=== PATIENT | female | born 1960 | race Caucasian/White ===

== ENCOUNTER 2018-12-23 07:51 | Outpatient (CLI) | payer BC ==
--- NOTE | 2018-12-23 09:32 | MRI ---
MR the lumbar spine without contrast INDICATION: Bilateral lumbar radiculopathy with bilateral leg weakness and pain COMPARISON: None. TECHNIQUE: Multiplanar multisequence MR images were obtained of lumbar spine without IV contrast. FINDINGS: Bone marrow: Bone marrow signal intensity appears within normal limits. Distal spinal cord and conus: Normal. The conus seen to terminate at L2. Visualized retroperitoneum and paraspinal soft tissues: Normal. Vertebral levels: L5-S1: There is a broad-based disc bulge with a superimposed central annular fissure. The loss of dis c space height in addition to the disc bulge and facet hypertrophy at L5-S1 induces moderate bilateral neural foraminal narrowing.. L4-5: There is a broad-based disc bulge with a superimposed central protrusion causing mild ventral e ffacement of the subarachnoid space. The disc bulge does encroach upon the inferior aspect of the neural foramina without definite impingement of the exiting nerve roots. L3-4: There is a mild broad-based bulge causing mild inferior neural foraminal encroachment but no ap preciable impingement of the exiting nerve roots. L2-3: There is a mild broad-based disc bulge but no appreciable central canal or neural foraminal charlie rowing L1-L2: There is a mild broad-based bulge but no appreciable central canal or neural foraminal narrowi ng T12-L1: No appreciable central canal or neuroforaminal narrowing. IMPRESSION: 1. Mild spondylosis of the lumbar spine most pronounced at L3-4 through L5-S1
== END 2018-12-23 07:52 | disposition home or self-care (01) ==
LOC: BICMRI 07:51
PROVIDERS: ATTEND Family Medicine
DX: M47.26 Other spondylosis with radiculopathy, lumbar region (principal); M47.817 Spondylosis without myelopathy or radiculopathy, lumbosacral region
CPT/HCPCS: 72148

== ENCOUNTER 2018-12-24 21:02 | Emergency (ER) | payer BC ==
[2018-12-24] MEDS ORDERED: Acetaminophen 500 MG TAB ONE (22:29)
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
== END 2018-12-25 00:43 | disposition home or self-care (01) ==
LOC: ERS 21:02
DX: R51 Headache (principal); D68.0 Von Willebrand disease; F32.9 Major depressive disorder, single episode, unspecified; F17.210 Nicotine dependence, cigarettes, uncomplicated; Z91.14 Patient's other noncompliance with medication regimen
CPT/HCPCS: 70450

== ENCOUNTER 2019-08-22 11:47 | Outpatient (CLI) | payer BC ==
--- NOTE | 2019-08-22 12:40 | MMO ---
Bilateral MAMMO Bilat Screen [facility]. CLINICAL HISTORY: Patient is 59 years old and is seen for screening. The patient has no family history of breast cancer. The patient has no personal history of cancer. VIEWS: The views performed were: bilateral craniocaudal with tomosynthesis and bilateral mediolateral oblique with tomosynthesis. This study has been interpreted with the assistance of computer-aided detection. MAMMOGRAM FINDINGS: The breasts are heterogeneously dense, which could obscure a lesion on mammography. There is a focal asymmetry seen in the middle upper-outer region of the right breast. In the left breast, there are no suspicious masses, calcifications or areas of architectural distortion. IMPRESSION: FOCAL ASYMMETRY IN THE RIGHT BREAST REQUIRES ADDITIONAL EVALUATION. RECOMMEND DIAGNOSTIC MAMMOGRAM. ULTRASOUND MAY ALSO PROVE USEFUL AT RECALL. THE RESULTS OF THIS EXAM WERE SENT TO THE PATIENT. ACR BI-RADS Category 0 - Incomplete: Need additional imaging evaluation. [facility] will notify the patient of the need for additional imaging services. MAMMOGRAPHY NOTE: 1. A negative mammogram report should not delay a biopsy if a dominant of clinically suspicious mass is present. 2. Approximately 10% to 15% of breast cancers are not detected by mammography. 3. Adenosis and dense breasts may obscure an underlying neoplasm. Reported by: PAUL GUY MD Electonically Signed: [id number]
== END 2019-08-22 11:48 | disposition home or self-care (01) ==
LOC: BICMAMMO 11:47
PROVIDERS: ATTEND Family Medicine
DX: Z12.31 Encounter for screening mammogram for malignant neoplasm of breast (principal); N64.89 Other specified disorders of breast
CPT/HCPCS: 77063; 77067

== ENCOUNTER 2019-08-24 08:48 | Outpatient (CLI) | payer BC ==
--- NOTE | 2019-08-24 09:17 | MMO ---
Right Breast MAMMO Unilat Diag [facility]. CLINICAL HISTORY: Patient is 59 years old and is seen for additional evaluation requested from prior study. The patient has no family history of breast cancer. The patient has no personal history of cancer. VIEWS: The views performed were: right craniocaudal spot compression with tomosynthesis; right mediolateral oblique spot compression with tomosynthesis; and right mediolateral with tomosynthesis. FILMS COMPARED: The present examination has been compared to a prior imaging study performed at [facility] on 08/22/2019. This study has been interpreted with the assistance of computer-aided detection. MAMMOGRAM FINDINGS: The breast is heterogeneously dense, which could obscure a lesion on mammography. The questionable asymmetric density did not persist with the additional views. There are no suspicious masses, suspicious calcifications, or new areas of architectural distortion. IMPRESSION: THERE IS NO MAMMOGRAPHIC EVIDENCE OF MALIGNANCY. A ROUTINE FOLLOW-UP MAMMOGRAM IN 1 YEAR IS RECOMMENDED. THE RESULTS OF THIS EXAM WERE SENT TO THE PATIENT. ACR BI-RADS Category 2 - Benign finding MAMMOGRAPHY NOTE: 1. A negative mammogram report should not delay a biopsy if a dominant of clinically suspicious mass is present. 2. Approximately 10% to 15% of breast cancers are not detected by mammography. 3. Adenosis and dense breasts may obscure an underlying neoplasm. Reported by: NOELLE DEE MD Electonically Signed: [id number]
== END 2019-08-24 08:49 | disposition home or self-care (01) ==
LOC: BICMAMMO 08:48
PROVIDERS: ATTEND Family Medicine
DX: R92.2 Inconclusive mammogram (principal)
CPT/HCPCS: G0279

== ENCOUNTER 2020-05-18 13:16 | Outpatient (CLI) | payer BC ==
--- NOTE | 2020-05-18 14:24 | RAD ---
LUMBAR SPINE: 05/18/20 Total of four views. HISTORY: Lumbar radiculopathy. Slight curvature to the left in the AP projection with apex at L2-3. The lumbar vertebrae maintain height. There is mild loss of disc space at L5-S1 and mild degenerative spurring at this level with mild facet hypertrophy. Disc spaces are preserved. No significant listhe sis or evidence of spondylolysis. IMPRESSION: Mild degenerative changes at L5-S1. POS: SARAW
--- NOTE | 2020-05-18 15:32 | MRI ---
EXAM: LUMBAR SPINE MRI WITHOUT IV CONTRAST: 05/18/20 HISTORY: Lumbar region myelopathy. Bilateral leg pain and weakness. COMPARISON: 12/23/18. Conus medullaris region appears unremarkable terminating at L2. No evidence for significant acute abn ormal marrow edema. Generalized disc desiccation changes and changes of spondylosis. Borderline sized common bile duct at 0.8 cm. T12-L1 disc: Unremarkable. L1-2 disc: Unremarkable. L2-3 disc: Unremarkable. L3-4 disc: Mild lateral recess and foraminal stenosis. L4-5 disc: Diffuse disc bulging with mild to moderate lateral recess stenosis and moderate bilateral foraminal stenosis worse on the left side. L5-S1 disc: Diffuse disc bulging with mild lateral recess stenosis and moderate bilateral foraminal s tenosis. IMPRESSION: Multilevel variable severity canal, lateral recess, and foraminal stenosis as above. POS: RRE
== END 2020-05-18 13:17 | disposition home or self-care (01) ==
LOC: BICMRI 13:16
PROVIDERS: ATTEND Neurological Surgery
DX: M54.16 Radiculopathy, lumbar region (principal); G95.9 Disease of spinal cord, unspecified; M47.817 Spondylosis without myelopathy or radiculopathy, lumbosacral region; M48.061 Spinal stenosis, lumbar region without neurogenic claudication; M48.07 Spinal stenosis, lumbosacral region
CPT/HCPCS: 72120; 72148

== ENCOUNTER 2020-08-24 18:04 | Emergency (ER) | payer BC ==
--- NOTE | 2020-08-24 19:10 | RAD ---
Left knee 4 views HISTORY: Left knee pain. Paresthesias. FINDINGS: Joint spaces are preserved. Very mild osteophytosis. No acute fracture, dislocation, or fluid distention of the suprapatellar bursa. Small bone island wit hin the medial tibial plateau. IMPRESSION : No acute abnormalities are demonstrated.
--- NOTE | 2020-08-24 20:06 | ULT ---
Venous duplex sonogram left lower extremity HISTORY: Left leg pain and edema. IMPRESSION : The left common femoral vein and greater saphenous junction were evaluated along with the femoral, de ep femoral, popliteal, and posterior tibial veins. There is good color and spectral Doppler flow, compression, and augmentation. IMPRESSION : Normal exam
== END 2020-08-24 20:45 | disposition home or self-care (01) ==
LOC: ERS 18:04
DX: S80.02XA Contusion of left knee, initial encounter (principal); F17.210 Nicotine dependence, cigarettes, uncomplicated; Z79.899 Other long term (current) drug therapy; D68.0 Von Willebrand disease; X58.XXXA Exposure to other specified factors, initial encounter

== ENCOUNTER 2020-10-26 10:11 | Outpatient (CLI) | payer BC | END 2020-10-26 10:12 | disposition home or self-care (01) | LOC: BICMAMMO 10:11 | PROVIDERS: ATTEND Family Medicine | DX: Z12.31 Encounter for screening mammogram for malignant neoplasm of breast (principal) | CPT/HCPCS: 77063; 77067 ==

== ENCOUNTER 2020-12-02 12:44 | Emergency (ER) | payer BC ==
[2020-12-02] MEDS ORDERED: Ketorolac Tromethamine 30 MG/ML VIAL ONE (14:06)
== END 2020-12-02 14:29 | disposition home or self-care (01) ==
LOC: ERS 12:44
DX: M75.102 Unspecified rotator cuff tear or rupture of left shoulder, not specified as traumatic (principal); F17.210 Nicotine dependence, cigarettes, uncomplicated
CPT/HCPCS: 93005; 96372; J1885

== ENCOUNTER 2021-12-17 16:23 | Emergency (ER) | payer BC ==
[2021-12-17] MEDS ORDERED: Acetaminophen 500 MG TAB ONE (17:14)
== END 2021-12-17 17:35 | disposition home or self-care (01) ==
LOC: ERS 16:23
DX: S60.221A Contusion of right hand, initial encounter (principal); D68.0 Von Willebrand disease; W20.8XXA Other cause of strike by thrown, projected or falling object, initial encounter; Z79.899 Other long term (current) drug therapy